=== PATIENT | female | born 1975 | race Caucasian/White ===

== ENCOUNTER 2016-08-06 21:11 | Emergency (ER) | payer SELFPAY | END 2016-08-07 00:34 | disposition left against medical advice (07) | LOC: ER1 21:11 | DX: Z53.21 Procedure and treatment not carried out due to patient leaving prior to being seen by health care provider (principal) | CPT/HCPCS: 99282 ==

== ENCOUNTER 2016-11-19 14:32 | Emergency (ER) | payer SELFPAY | END 2016-11-19 16:19 | disposition home or self-care (01) | LOC: ER1 14:32 | DX: J02.9 Acute pharyngitis, unspecified (principal); I10 Essential (primary) hypertension; F41.9 Anxiety disorder, unspecified; Z87.891 Personal history of nicotine dependence; Z88.0 Allergy status to penicillin; Z88.2 Allergy status to sulfonamides; Z79.899 Other long term (current) drug therapy | CPT/HCPCS: 99282 ==

== ENCOUNTER 2020-05-30 16:55 | Emergency (ER) | payer OTHER ==
[~2020-05-30 16:55] MED LIST: CLEOCIN HCL300 MG PO
[2020-05-30] MEDS ORDERED: ZYRTEC10 MG PO (18:39)
[2020-05-30] MEDS ORDERED: IBUPROFEN600 MG PO (18:39)
[2020-05-30] MEDS ORDERED: FLONASE 0.05% N16 GM (18:39)
== END 2020-05-30 18:45 | disposition home or self-care (01) ==
LOC: ER1 16:55
DX: J06.9 Acute upper respiratory infection, unspecified (principal); F17.210 Nicotine dependence, cigarettes, uncomplicated; Z88.0 Allergy status to penicillin; Z88.2 Allergy status to sulfonamides
CPT/HCPCS: 87081; 87880; 99283

== ENCOUNTER 2020-12-02 00:53 | Emergency (ER) | payer OTHER ==
[~2020-12-02 00:53] MED LIST changes: +FLONASE 0.05% N16 GM; +IBUPROFEN600 MG PO; +ZYRTEC10 MG PO
[2020-12-02 02:16] LABS: RED BLOOD COUNT 4.06 M/UL (4.00-5.10); WHITE BLOOD COUNT 5.7 K/UL (4.5-11.0)
[2020-12-02 02:40] LABS: BUN/CREATININE RATIO 24 (0-10)
[2020-12-02] MEDS ORDERED: ZOFRAN4 MG PO (04:04)
== END 2020-12-02 05:05 | disposition home or self-care (01) ==
LOC: ER1 00:53
PROVIDERS: Physician Assistant
DX: K59.00 Constipation, unspecified (principal); F17.210 Nicotine dependence, cigarettes, uncomplicated; Z88.0 Allergy status to penicillin; Z88.2 Allergy status to sulfonamides; Z88.1 Allergy status to other antibiotic agents
CPT/HCPCS: 80053; 81001; 83690; 84703; 85025; 87086; 99284; Q9967

== ENCOUNTER 2021-03-26 17:44 | Emergency (ER) | payer OTHER ==
[~2021-03-26 17:44] MED LIST changes: +ZOFRAN4 MG PO
[2021-03-26 19:01] LABS: HEMOGLOBIN 12.7 gm/dl (12.3-15.3); RED BLOOD COUNT 4.05 M/UL (4.00-5.10); WHITE BLOOD COUNT 6.8 K/UL (4.5-11.0)
[2021-03-26 20:32] LABS: BUN/CREATININE RATIO 23 (0-10)
[2021-03-26] MEDS ORDERED: OMNICEF 300 MG300 MG PO (21:09)
== END 2021-03-26 19:00 | disposition home or self-care (01) ==
LOC: ER1 17:44
PROVIDERS: Emergency Medicine
DX: L03.116 Cellulitis of left lower limb (principal); F17.200 Nicotine dependence, unspecified, uncomplicated; Z88.0 Allergy status to penicillin; Z88.2 Allergy status to sulfonamides; Z88.1 Allergy status to other antibiotic agents
CPT/HCPCS: 73590; 80053; 85025; 85379; 86140; 96374; 99283; J0696

== ENCOUNTER 2021-09-05 07:14 | Emergency (ER) | payer OTHER ==
[~2021-09-05 07:14] MED LIST changes: +OMNICEF 300 MG300 MG PO
[2021-09-05 08:15] LABS: HEMOGLOBIN 12.8 gm/dl (12.3-15.3); RED BLOOD COUNT 4.25 M/UL (4.00-5.10); WHITE BLOOD COUNT 5.4 K/UL (4.5-11.0)
[2021-09-05 08:39] LABS: BUN/CREATININE RATIO 22 (0-10)
[2021-09-05] MEDS ORDERED: LASIX20 MG PO (10:41)
[2021-09-05] MEDS ORDERED: KENALOG OINT 0.15 GM TOP (10:41)
== END 2021-09-05 10:57 | disposition home or self-care (01) ==
LOC: ER1 07:14
PROVIDERS: Physician Assistant Medical
DX: M79.661 Pain in right lower leg (principal); M79.662 Pain in left lower leg
CPT/HCPCS: 71045; 80053; 83880; 85025; 93970; 99284

== ENCOUNTER 2021-12-01 09:12 | Emergency (ER) | payer OTHER ==
[~2021-12-01 09:12] MED LIST changes: +KENALOG OINT 0.15 GM TOP; +LASIX20 MG PO
== END 2021-12-01 09:35 | disposition left against medical advice (07) ==
LOC: ER1 09:12
DX: Z53.21 Procedure and treatment not carried out due to patient leaving prior to being seen by health care provider (principal)